=== PATIENT | male | born 1965 | race Caucasian/White ===

== ENCOUNTER 2018-09-25 18:10 | Inpatient (IN) | payer MEDICAID ==
[~2018-09-25] VITALS: Ht 160 cm; Wt 59.1 kg
[2018-09-25] MEDS ORDERED: ACETAMINOPHEN 325 MG TAB PO ONE (18:30)
[2018-09-25] MEDS ORDERED: LORAZEPAM 1 MG TAB PO ONE (18:30)
--- NOTE | 2018-09-25 22:48 | ERD ---
ER Documentation Chief Complaint Chief Complaint C/O HEADACHE FOUND FROM THE STREET AOX4 HPI Patient is a 53-year-old male who presents with headache. The patient was brought in by ambulance. The symptoms started this morning. The patient said the pain comes and goes. He denies any fall today but says he may have had a fall within the last 1 week. His last alcohol was 3 days ago. Upon review of old medical records this is the patient's first visit to the emergency department. ROS All systems reviewed and are negative except as per history of present illness. Allergies Allergies: Coded Allergies: No Known Allergy (Unverified , 09/25/18) PMhx/Soc Medical and Surgical Hx: pt denies Medical Hx, pt denies Surgical Hx Hx Alcohol Use: Yes (etoh at this time) Hx Substance Use: No Hx Tobacco Use: No Smoking Status: Light tobacco smoker FmHx Family History: No diabetes Physical Exam Vitals Vital Signs Date Temp Pulse Resp B/P (MAP) Pulse Ox O2 O2 Flow FiO2 Time Delivery Rate 09/25/18 79 16 136/93 99 21:42 (107) 09/25/18 97.8 72 18 143/68 98 18:15 (93) Physical Exam Const: No acute distress Head: Atraumatic Eyes: Normal Conjunctiva ENT: Normal External Ears, Nose and Mouth. Neck: Full range of motion. No meningismus. Resp: Clear to auscultation bilaterally Cardio: Regular rate and rhythm, no murmurs Abd: Soft, non tender, non distended. Normal bowel sounds Skin: No petechiae or rashes Back: No midline or flank tenderness Ext: No cyanosis, or edema Neur: Awake and alert Psych: Normal Mood and Affect Result Diagram: 09/25/18213909/25/182139 Results 24 hrs Laboratory Tests Test 09/25/18 18:24 09/25/18 21:40 Bedside Glucose 90 mg/dL White Blood Count 5.2 10^3/ul Red Blood Count 3.09 10^6/ul Hemoglobin 9.3 g/dl Hematocrit 28.6 % Mean Corpuscular Volume 92.6 fl Mean Corpuscular Hemoglobin 30.1 pg Mean Corpuscular Hemoglobin Concent 32.5 g/dl Red Cell Distribution Width 12.7 % Platelet Count 321 10^3/UL Mean Platelet Volume 9.2 fl Immature Granulocytes % 0.400 % Neutrophils % % Lymphocytes % % Monocytes % % Eosinophils % % Basophils % % Nucleated Red Blood Cells % 0.0 /100WBC Immature Granulocytes # 0.020 10^3/ul Neutrophils # 10^3/ul Lymphocytes # 10^3/ul Monocytes # 10^3/ul Eosinophils # 10^3/ul Basophils # 10^3/ul Nucleated Red Blood Cells # 10^3/ul Prothrombin Time 13.4 Sec Prothrombin Time Ratio 1.0 INR International Normalized Ratio 1.01 Activated Partial Thromboplast Time 25.5 Sec Sodium Level 138 mmol/L Potassium Level 3.8 mmol/L Chloride Level 101 mmol/L Carbon Dioxide Level 25 mmol/L Anion Gap 12 Blood Urea Nitrogen 19 mg/dl Creatinine 0.90 mg/dl Est Glomerular Filtrat Rate mL/min > 60 mL/min Glucose Level 94 mg/dl Calcium Level 9.9 mg/dl Troponin I < 0.012 ng/ml Current Medications Medications Dose Sig/Kenan Start Time Status Last (Trade) Ordered Route PRN Stop Time Admin Dose Reason Admin Lorazepam 1 mg ONCE ONCE 09/25/18 DC 09/25/18 (Ativan) PO 18:30 09/25/18 18:21 18:31 650 mg ONCE ONCE 09/25/18 DC 09/25/18 Acetaminophen PO 18:30 09/25/18 18:21 (Tylenol 18:31 Tab) Ondansetron 4 mg ER BRIDGE 09/25/18 HCl (Zofran PRN IV 23:00 09/26/18 Inj) NAUSEA/VOMITI 22:59 NG 650 mg ER BRIDGE 09/25/18 Acetaminophen PRN PO 23:00 09/26/18 (Tylenol .MILD PAIN 22:59 Tab) 1-3 OR TEMP Procedures/MDM CT brain shows skull fracture with vasogenic edema per radiology. EKG read by me: Rate/Rhythm: Regular rate and rhythm at a normal rate Intervals: Normal Impression: No evidence of ischemia or arrhythmia Patient is a 53-year-old male who presents with headache. The patient had a CT scan of the brain which shows a skull fracture with underlying edema but no bl eed. The patient will be admitted to the care of Dr. Obrien. I spoke with Dr. Tenorio who will see the patient in consultation and has recommended a repeat CT scan of the brain in the morning. I believe the fracture was likely from fall within the past week given his alcohol abuse. Critical Care: Time: 35 minutes excluding all billable procedures. Treatments/Evaluations: Close monitoring and treatment of unstable vital signs, cardiorespiratory, and neurologic status, while maintaining tight balance of fluid, respiratory, and cardiac interventions. Departure Diagnosis: Primary Impression: Skull fracture Encounter type: initial encounter Skull bone/location: unspecified skull bone Fracture type: closed Qualified Codes: S02.91XA - Unspecified fracture of skull, initial encounter for closed fracture Additional Impressions: Vasogenic edema Headache Headache type: unspecified Headache chronicity pattern: acute headache Intractability: not intractable Qualified Codes: R51 - Headache Condition: EVAN Terry MD September 25, 2018 22:48
[2018-09-25] MEDS ORDERED: ONDANSETRON 4 MG INJ IV PRN ×2 (23:00→23:30)
[2018-09-25] MEDS ORDERED: ACETAMINOPHEN 325 MG TAB PO PRN (23:00)
[2018-09-25] MEDS ORDERED: ALBUTEROL/IPRATROPIUM (NEB) 3 ML AMP NEB PRN (23:30)
[2018-09-25] MEDS ORDERED: ACETAMINOPHEN 650 MG SUPP PR PRN (23:30)
[2018-09-25] MEDS ORDERED: LORAZEPAM 2 MG INJ IV PRN (23:30)
--- NOTE | 2018-09-25 23:31 | HP ---
Date/Time of Note Date/Time of Note DATE: 09/25/18 TIME: 23:30 Assessment/Plan VTE Prophylaxis Pharmacological prophylaxis: heparin Lines/Catheters IV Catheter Type (from Nrsg): Saline Lock Assessment/Plan Assessment/Plan 1. Skull fracture with vasogenic edema -Continue ICU monitoring -Dr. Tenorio from a neurosurgery is aware -Repeat head CT in the morning -will also order MRI of the brain 2. Alcohol intoxication/withdrawal -Banana bag alternating with IV fluid -Librium. As needed Ativan 3. Normocytic anemia: Likely alcohol related -Check FOBT and ferritin/iron to evaluate for possible GI bleed and iron deficiency Result Diagram: 09/25/18213909/25/182139 Results 24hrs Laboratory Tests Test 09/25/18 18:24 09/25/18 21:40 Bedside Glucose 90 White Blood Count 5.2 Red Blood Count 3.09 L Hemoglobin 9.3 L Hematocrit 28.6 L Mean Corpuscular Volume 92.6 Mean Corpuscular Hemoglobin 30.1 Mean Corpuscular Hemoglobin Concent 32.5 Red Cell Distribution Width 12.7 Platelet Count 321 Mean Platelet Volume 9.2 Immature Granulocytes % 0.400 Neutrophils % Segmented Neutrophils % (Manual) 42 Lymphocytes % Lymphocytes % (Manual) 38 Reactive Lymphocytes % (Manual) 1 H Monocytes % Monocytes % (Manual) 14 H Eosinophils % Eosinophils % (Manual) 5 Basophils % Nucleated Red Blood Cells % 0.0 Immature Granulocytes # 0.020 Neutrophils # Lymphocytes (Manual) 1.9 Lymphocytes # Reactive Lymphocytes # 0.0 Monocytes # Monocytes # (Manual) 0.7 Eosinophils # Basophils # Nucleated Red Blood Cells # Platelet Estimate NORMAL Giant Platelets 1 H Polychromasia 1+ Prothrombin Time 13.4 Prothrombin Time Ratio 1.0 INR International Normalized Ratio 1.01 Activated Partial Thromboplast Time 25.5 Sodium Level 138 Potassium Level 3.8 Chloride Level 101 Carbon Dioxide Level 25 Anion Gap 12 Blood Urea Nitrogen 19 Creatinine 0.90 Est Glomerular Filtrat Rate mL/min > 60 Glucose Level 94 Calcium Level 9.9 Troponin I < 0.012 HPI/ROS Admit Date/Time Admit Date/Time Hx of Present Illness This is a 53-year-old male with likely history of alcohol abuse who was brought by [employer] after he was found wandering around. Patient was found to be intoxicated. He complains of headache. When presented to the ER, patient appeared lethargic and also showing signs of alcohol withdrawal. Initial vitals within acceptable range. Head CT shows the following 1. Non depressed fracture of the frontal bone extending into the left parietal bone at the convexity without evidence for acute intracranial hemorrhage. 2. Vasogenic edema in the right frontal right temporal lobes is believed to be related to underlying subacute to chronic contusions rather than neoplasm with local mass effect but no evidence of herniation or hydrocephalous. 3. Generalized advanced cerebral atrophy for the patient's age. PMH/Family/Social Past Medical History Past Surgical Hx: other (see hpi) Family History Significant Family History: no pertinent family hx Social History Alcohol Use: heavy (2 beers a day) Smoking Status: Never smoker Drug Use: none Exam Constitutional: other (no acute distress) ENMT: nl external ears & nose Neck: supple, non-tender Respiratory: normal air movement Cardiovascular: nl pulses Gastrointestinal: soft Extremities: normal pulses Medications Current Medications Ondansetron HCl (Zofran Inj) 4 mg ER BRIDGE PRN IV NAUSEA/VOMITING; Start 09/25/18 at 23:00; Stop 09/26/18 at 22:59 Acetaminophen (Tylenol Tab) 650 mg ER BRIDGE PRN PO .MILD PAIN 1-3 OR TEMP; Start 09/25/18 at 23:00; Stop 09/26/18 at 22:59 Coded Allergies: No Known Allergy (Unverified , 09/25/18) Social History Smoking Status: Light tobacco smoker Exam/Review of Systems Vital Signs Vitals Vital Signs Date Temp Pulse Resp B/P (MAP) Pulse Ox O2 O2 Flow FiO2 Time Delivery Rate 09/25/18 83 14 133/95 98 Room Air 23:04 (108) 09/25/18 97.8 18:15 MIKE WICK MD September 25, 2018 23:30
[2018-09-26] VITALS (20 sets, daily range): BP systolic 105–144; BP diastolic 72–130; PULSE 54–91; RESP 12–26; Ht 160 cm; Wt 59.1 kg
[2018-09-26] MEDS ORDERED: LORAZEPAM 2 MG INJ IV ONE
[2018-09-26] MEDS ORDERED: SOD CHLORIDE 0.9% 1,000 ML IV SCH (01:30)
[2018-09-26] MEDS ORDERED: LORAZEPAM 2 MG INJ IV PRN (01:30)
[2018-09-26] MEDS: CHLORDIAZEPOXIDE 25 MG CAP PO SCH ×3 (03:40→14:15)
[2018-09-26] MEDS: POTASSIUM CHLORIDE (SR) 20 MEQ TAB PO SCH ×2 (06:58→09:40)
[2018-09-26] MEDS ORDERED: MULTIVITAMINS 10 ML, THIAMINE 100 MG, FOLIC ACID 1 MG in SOD CHLORIDE 0.9% 1,000 ML IVPB SCH (09:00)
[2018-09-26] MEDS: FAMOTIDINE 20 MG INJ IV SCH ×2 (09:40→21:01)
--- NOTE | 2018-09-26 12:35 | CONS ---
Assessment/Plan Assessment/Plan Problems: (1) Skull fracture Status: Acute Qualifiers: Qualified Codes: S02.91XA - Unspecified fracture of skull, initial encounter for closed fracture (2) Vasogenic edema Status: Acute Assessment/Plan (Daily) Skull fracture and right hemispheric edema. The patient is a poor historian and there is no clear history of trauma other than that the patient admits to fall about a week ago. Overall his imaging is suggestive of a right hemispheric process- for example a tumor or a resolving contusion. If the latter I do not think it is c/w injury a week ago, but then again the patient is a poor historian. In any event I will get an MRI to rule out an underlying primary [employer] pathology that maybe could have contribute to or caused the fall (ie brain tumor). He is OK to transfer out of ICU from NS perspective if MRI confirms no acute process. Consultation Date/Type/Reason Admit Date/Time Date of Consultation: September 26, 2018 Type of Consult neurosurgery Reason for Consultation skull fracture Date/Time of Note DATE: 09/26/18 TIME: 12:28 Hx of Present Illness 53 year old male presents with headache. CT shows right frontal and temporal edema with mass effect on lateral ventricle; no hyperdensity to suggest hemorrhage. Skull fracture (non-displaced) noted extending from right forehead to left parietal bone. No hydrocephalus, pneumocephalus, or other acute process. Past Medical History Medications Current Medications Ondansetron HCl (Zofran Inj) 4 mg ER BRIDGE PRN IV NAUSEA/VOMITING; Start 09/25/18 at 23:00; Stop 09/26/18 at 22:59 Acetaminophen (Tylenol Tab) 650 mg ER BRIDGE PRN PO .MILD PAIN 1-3 OR TEMP; Start 09/25/18 at 23:00; Stop 09/26/18 at 22:59 Ondansetron HCl (Zofran Inj) 4 mg Q6H PRN IV NAUSEA AND/OR VOMITING; Start 09/25/18 at 23:30 Albuterol/ Ipratropium (Duoneb) 3 ml Q2H RESP THERAPY PRN NEB SHORTNESS OF BREATH; Start 09/25/18 at 23:30 Acetaminophen (Tylenol Supp) 650 mg Q4H PRN OR PAIN LEVEL 1-3 OR FEVER; Start 09/25/18 at 23:30 Lorazepam (Ativan) 1 mg Q2H PRN IV ANXIETY; Start 09/25/18 at 23:30 Famotidine (Pepcid Iv) 20 mg Q12 IV Last administered on 09/26/18at 09:40; Admin Dose 20 MG; Start 09/26/18 at 09:00 Multivitamins 10 ml/Thiamine HCl 100 mg/Folic Acid 1 mg/Sodium Chloride 1,011.2 ml @ 125 mls/ hr DAILY@09 IVPB Last administered on 09/26/18at 10:32; Admin Dose 125 MLS/HR; Start 09/26/18 at 09:00; Stop 09/29/18 at 09:00 Chlordiazepoxide (Librium) 75 mg TID PO Last administered on 09/26/18at 09:40; Admin Dose 75 MG; Start 09/26/18 at 01:30 Lorazepam (Ativan) 2 mg Q1H PRN IV etoh w/d; Start 09/26/18 at 01:30 Allergies: Coded Allergies: No Known Allergy (Unverified , 09/25/18) Social History Smoking Status: Light tobacco smoker Exam/Review of Systems Exam Vitals Vital Signs Date Temp Pulse Resp B/P (MAP) Pulse Ox O2 O2 Flow FiO2 Time Delivery Rate 09/26/18 64 16 116/72 100 Room Air 10:00 (87) 09/26/18 97.8 08:00 Intake and Output 09/25/18 09/25/18 09/26/18 1515:00 23:00 07:00 IntakeIntake Total 400 ml OutputOutput Total 600 ml BalanceBalance -200 ml Constitutional: well developed Psych: confusion Head: normocephalic Eyes: nl conjunctiva, EOMI, nl lids, nl sclera ENMT: nl external ears & nose, mucosa pink and moist Neck: non-tender Musculoskeletal: nl extremities to inspection Neurological: [employer] II-XII intact, nl strength Additional Comments neurologic exam: awake, alert, answers some questions appropriately and does follow commands. Moves all extremities with full power. Results Result Diagram: 09/26/18 0436 09/26/18 0436 Results 24hrs Laboratory Tests Test 09/25/18 18:24 09/25/18 21:40 09/26/18 04:36 Bedside Glucose 90 White Blood Count 5.2 4.4 L Red Blood Count 3.09 L 2.95 L Hemoglobin 9.3 L 8.9 L Hematocrit 28.6 L 26.9 L Mean Corpuscular Volume 92.6 91.2 Mean Corpuscular Hemoglobin 30.1 30.2 Mean Corpuscular Hemoglobin Concent 32.5 33.1 Red Cell Distribution Width 12.7 12.2 Platelet Count 321 295 Mean Platelet Volume 9.2 9.3 Immature Granulocytes % 0.400 0.200 Neutrophils % 49.8 Segmented Neutrophils % (Manual) 42 Lymphocytes % 28.3 Lymphocytes % (Manual) 38 Reactive Lymphocytes % (Manual) 1 H Monocytes % 16.6 H Monocytes % (Manual) 14 H Eosinophils % 2.3 Eosinophils % (Manual) 5 Basophils % 2.8 H Nucleated Red Blood Cells % 0.0 0.0 Immature Granulocytes # 0.020 0.010 Neutrophils # 2.2 Lymphocytes (Manual) 1.9 Lymphocytes # 1.2 Reactive Lymphocytes # 0.0 Monocytes # 0.7 Monocytes # (Manual) 0.7 Eosinophils # 0.1 Basophils # 0.1 Nucleated Red Blood Cells # 0.0 Platelet Estimate NORMAL Giant Platelets 1 H Polychromasia 1+ Prothrombin Time 13.4 Prothrombin Time Ratio 1.0 INR International Normalized Ratio 1.01 Activated Partial Thromboplast Time 25.5 Sodium Level 138 138 Potassium Level 3.8 3.0 L Chloride Level 101 103 Carbon Dioxide Level 25 25 Anion Gap 12 10 Blood Urea Nitrogen 19 13 Creatinine 0.90 0.72 Est Glomerular Filtrat Rate mL/min > 60 > 60 Glucose Level 94 86 Calcium Level 9.9 9.0 Troponin I < 0.012 Hemoglobin A1c 5.0 Magnesium Level 1.7 Iron Level 51 Total Iron Binding Capacity 256 Percent Iron Saturation 20 L Ferritin 691.0 H Total Bilirubin 0.7 Direct Bilirubin 0.00 Indirect Bilirubin 0.7 Aspartate Amino Transf (AST/SGOT) 45 Alanine Aminotransferase (ALT/SGPT) 49 Alkaline Phosphatase 102 Total Protein 6.7 Albumin 3.7 Globulin 3.00 Albumin/Globulin Ratio 1.23 Ethyl Alcohol Level < 10.0 H Medications Medication Current Medications Ondansetron HCl (Zofran Inj) 4 mg ER BRIDGE PRN IV NAUSEA/VOMITING; Start 09/25/18 at 23:00; Stop 09/26/18 at 22:59 Acetaminophen (Tylenol Tab) 650 mg ER BRIDGE PRN PO .MILD PAIN 1-3 OR TEMP; Start 09/25/18 at 23:00; Stop 09/26/18 at 22:59 Ondansetron HCl (Zofran Inj) 4 mg Q6H PRN IV NAUSEA AND/OR VOMITING; Start 09/25/18 at 23:30 Albuterol/ Ipratropium (Duoneb) 3 ml Q2H RESP THERAPY PRN NEB SHORTNESS OF BREATH; Start 09/25/18 at 23:30 Acetaminophen (Tylenol Supp) 650 mg Q4H PRN OR PAIN LEVEL 1-3 OR FEVER; Start 09/25/18 at 23:30 Lorazepam (Ativan) 1 mg Q2H PRN IV ANXIETY; Start 09/25/18 at 23:30 Famotidine (Pepcid Iv) 20 mg Q12 IV Last administered on 09/26/18at 09:40; Admin Dose 20 MG; Start 09/26/18 at 09:00 Multivitamins 10 ml/Thiamine HCl 100 mg/Folic Acid 1 mg/Sodium Chloride 1,011.2 ml @ 125 mls/ hr DAILY@09 IVPB Last administered on 09/26/18at 10:32; Admin Dose 125 MLS/HR; Start 09/26/18 at 09:00; Stop 09/29/18 at 09:00 Chlordiazepoxide (Librium) 75 mg TID PO Last administered on 09/26/18at 09:40; Admin Dose 75 MG; Start 09/26/18 at 01:30 Lorazepam (Ativan) 2 mg Q1H PRN IV etoh w/d; Start 09/26/18 at 01:30 RICKIE ANGEL MD September 26, 2018 12:35
--- NOTE | 2018-09-26 15:11 | PN ---
Date/Time of Note Date/Time of Note DATE: 09/26/18 TIME: 15:06 Assessment/Plan VTE Prophylaxis Risk score (from Nsg)>0 risk: 4 SCD applied (from Nsg): Yes Pharmacological prophylaxis: heparin Lines/Catheters IV Catheter Type (from Nrsg): Peripheral IV Urinary Cath still in place: Yes Reason Cath still needed: urinary retention Assessment/Plan Hospital Course Lethargic Able to answer where he is, year, name appopriately, however unable to provide coherent history Moving extremities x 4 spontaneously CN in tact RRR CTAB + Tremors in hands A/P: 53 yo male with unclear medical history who was brought in by EMS with documentation stating he was wandering back and forth on the street and complaining of headache. CT head shows skull fracture and Vasogenic edema in the right frontal right temporal lobes. He is acutely encephelopathic and unable to provide history - I dont' see any evidence by labs or history that this patient's is a chronic alcoholic to suggest his encephelopahty is 2/2 withdrawal. He is a bit tremulous in his hands but it seems unlikely this is purely alcohol withdrawal. Will dc librium and monitor - Whatever process is occuring in his brain may be leading to his encephelopahty. Might be malignancy. Will obtain MRI to evaluate - Supportive care in the meantime Result Diagram: 09/26/18 0436 09/26/18 0436 Results 24hrs Laboratory Tests Test 09/25/18 18:24 09/25/18 21:40 09/26/18 04:36 09/26/18 06:00 Bedside Glucose 90 White Blood Count 5.2 4.4 L Red Blood Count 3.09 L 2.95 L Hemoglobin 9.3 L 8.9 L Hematocrit 28.6 L 26.9 L Mean Corpuscular Volume 92.6 91.2 Mean Corpuscular 30.1 30.2 Hemoglobin Mean Corpuscular 32.5 33.1 Hemoglobin Concent Red Cell Distribution 12.7 12.2 Width Platelet Count 321 295 Mean Platelet Volume 9.2 9.3 Immature Granulocytes % 0.400 0.200 Neutrophils % 49.8 Segmented Neutrophils 42 % (Manual) Lymphocytes % 28.3 Lymphocytes % (Manual) 38 Reactive Lymphocytes 1 H % (Manual) Monocytes % 16.6 H Monocytes % (Manual) 14 H Eosinophils % 2.3 Eosinophils % (Manual) 5 Basophils % 2.8 H Nucleated Red Blood 0.0 0.0 Cells % Immature Granulocytes # 0.020 0.010 Neutrophils # 2.2 Lymphocytes (Manual) 1.9 Lymphocytes # 1.2 Reactive Lymphocytes # 0.0 Monocytes # 0.7 Monocytes # (Manual) 0.7 Eosinophils # 0.1 Basophils # 0.1 Nucleated Red Blood 0.0 Cells # Platelet Estimate NORMAL Giant Platelets 1 H Polychromasia 1+ Prothrombin Time 13.4 Prothrombin Time Ratio 1.0 INR International 1.01 Normalized Ratio Activated 25.5 Partial Thromboplast Time Sodium Level 138 138 Potassium Level 3.8 3.0 L Chloride Level 101 103 Carbon Dioxide Level 25 25 Anion Gap 12 10 Blood Urea Nitrogen 19 13 Creatinine 0.90 0.72 Est Glomerular Filtrat > 60 > 60 Rate mL/min Glucose Level 94 86 Calcium Level 9.9 9.0 Troponin I < 0.012 Hemoglobin A1c 5.0 Magnesium Level 1.7 Iron Level 51 Total Iron Binding 256 Capacity Percent Iron Saturation 20 L Ferritin 691.0 H Total Bilirubin 0.7 Direct Bilirubin 0.00 Indirect Bilirubin 0.7 Aspartate Amino 45 Transf (AST/SGOT) Alanine 49 Aminotransferase (ALT/SG PT) Alkaline Phosphatase 102 Total Protein 6.7 Albumin 3.7 Globulin 3.00 Albumin/Globulin Ratio 1.23 Ethyl Alcohol Level < 10.0 H Urine Opiates Screen Negative Urine Barbiturates Negative Urine Amphetamines Negative Screen Urine Benzodiazepines Negative Screen Urine Cocaine Screen Negative Urine Cannabinoids Negative Subjective 24 Hr Interval Summary Free Text/Dictation Patinet complains of pain in occiput Exam/Review of Systems Exam Vitals Vital Signs Date Temp Pulse Resp B/P (MAP) Pulse Ox O2 O2 Flow FiO2 Time Delivery Rate 09/26/18 54 13 123/85 100 Room Air 15:00 (98) 09/26/18 96.9 12:00 Intake and Output 09/25/18 09/25/18 09/26/18 1515:00 23:00 07:00 IntakeIntake Total 400 ml OutputOutput Total 600 ml BalanceBalance -200 ml Results Results 24hrs Laboratory Tests Test 09/25/18 18:24 09/25/18 21:40 09/26/18 04:36 09/26/18 06:00 Bedside Glucose 90 White Blood Count 5.2 4.4 L Red Blood Count 3.09 L 2.95 L Hemoglobin 9.3 L 8.9 L Hematocrit 28.6 L 26.9 L Mean Corpuscular Volume 92.6 91.2 Mean Corpuscular 30.1 30.2 Hemoglobin Mean Corpuscular 32.5 33.1 Hemoglobin Concent Red Cell Distribution 12.7 12.2 Width Platelet Count 321 295 Mean Platelet Volume 9.2 9.3 Immature Granulocytes % 0.400 0.200 Neutrophils % 49.8 Segmented Neutrophils 42 % (Manual) Lymphocytes % 28.3 Lymphocytes % (Manual) 38 Reactive Lymphocytes 1 H % (Manual) Monocytes % 16.6 H Monocytes % (Manual) 14 H Eosinophils % 2.3 Eosinophils % (Manual) 5 Basophils % 2.8 H Nucleated Red Blood 0.0 0.0 Cells % Immature Granulocytes # 0.020 0.010 Neutrophils # 2.2 Lymphocytes (Manual) 1.9 Lymphocytes # 1.2 Reactive Lymphocytes # 0.0 Monocytes # 0.7 Monocytes # (Manual) 0.7 Eosinophils # 0.1 Basophils # 0.1 Nucleated Red Blood 0.0 Cells # Platelet Estimate NORMAL Giant Platelets 1 H Polychromasia 1+ Prothrombin Time 13.4 Prothrombin Time Ratio 1.0 INR International 1.01 Normalized Ratio Activated 25.5 Partial Thromboplast Time Sodium Level 138 138 Potassium Level 3.8 3.0 L Chloride Level 101 103 Carbon Dioxide Level 25 25 Anion Gap 12 10 Blood Urea Nitrogen 19 13 Creatinine 0.90 0.72 Est Glomerular Filtrat > 60 > 60 Rate mL/min Glucose Level 94 86 Calcium Level 9.9 9.0 Troponin I < 0.012 Hemoglobin A1c 5.0 Magnesium Level 1.7 Iron Level 51 Total Iron Binding 256 Capacity Percent Iron Saturation 20 L Ferritin 691.0 H Total Bilirubin 0.7 Direct Bilirubin 0.00 Indirect Bilirubin 0.7 Aspartate Amino 45 Transf (AST/SGOT) Alanine 49 Aminotransferase (ALT/SG PT) Alkaline Phosphatase 102 Total Protein 6.7 Albumin 3.7 Globulin 3.00 Albumin/Globulin Ratio 1.23 Ethyl Alcohol Level < 10.0 H Urine Opiates Screen Negative Urine Barbiturates Negative Urine Amphetamines Negative Screen Urine Benzodiazepines Negative Screen Urine Cocaine Screen Negative Urine Cannabinoids Negative Medications Medication Current Medications Ondansetron HCl (Zofran Inj) 4 mg ER BRIDGE PRN IV NAUSEA/VOMITING; Start 09/25/18 at 23:00; Stop 09/26/18 at 22:59 Acetaminophen (Tylenol Tab) 650 mg ER BRIDGE PRN PO .MILD PAIN 1-3 OR TEMP; Start 09/25/18 at 23:00; Stop 09/26/18 at 22:59 Ondansetron HCl (Zofran Inj) 4 mg Q6H PRN IV NAUSEA AND/OR VOMITING; Start 09/25/18 at 23:30 Albuterol/ Ipratropium (Duoneb) 3 ml Q2H RESP THERAPY PRN NEB SHORTNESS OF BREATH; Start 09/25/18 at 23:30 Acetaminophen (Tylenol Supp) 650 mg Q4H PRN [place] PAIN LEVEL 1-3 OR FEVER; Start 09/25/18 at 23:30 Lorazepam (Ativan) 1 mg Q2H PRN IV ANXIETY; Start 09/25/18 at 23:30 Famotidine (Pepcid Iv) 20 mg Q12 IV Last administered on 09/26/18at 09:40; Admin Dose 20 MG; Start 09/26/18 at 09:00 Multivitamins 10 ml/Thiamine HCl 100 mg/Folic Acid 1 mg/Sodium Chloride 1,011.2 ml @ 125 mls/ hr DAILY@09 IVPB Last administered on 09/26/18at 10:32; Admin Dose 125 MLS/HR; Start 09/26/18 at 09:00; Stop 09/29/18 at 09:00 Chlordiazepoxide (Librium) 75 mg TID PO Last administered on 09/26/18at 14:15; Admin Dose 75 MG; Start 09/26/18 at 01:30 Lorazepam (Ativan) 2 mg Q1H PRN IV etoh w/d; Start 09/26/18 at 01:30 RIC GIRON MD September 26, 2018 15:11
[2018-09-26] MEDS ORDERED: PRENATAL VITAMIN PO ONE (16:30)
[2018-09-27] VITALS (12 sets, daily range): BP systolic 104–137; BP diastolic 57–87; PULSE 71–101; RESP 18–20
[2018-09-27] MEDS: FAMOTIDINE 20 MG INJ IV SCH ×2 (08:34→21:45)
--- NOTE | 2018-09-27 15:53 | PN ---
Date/Time of Note Date/Time of Note DATE: 09/27/18 TIME: 15:48 Assessment/Plan VTE Prophylaxis Risk score [place]from [facility] [place] risk: 4 SCD applied (from [facility] [place] Yes Pharmacological prophylaxis: NA/contraindicated Pharm contraindication: bleeding Lines/Catheters IV C[facility]ter Type (from [facility]): Saline Lock Assessment/Plan Hospital Course 1. Acute encephalopathy secondary to intracranial hemorrhage Patient with unclear medical history who was brought in by EMS for confusion and headache CT head showed skull fracture and Vasogenic edema in the right frontal right temporal lobes. MRI shows complex area of hemorrhage involving the anterior medial right temporal lobe, largest hemorrhagic collection measuring 5.0 x 2.4 x 2.5 cm, vasogenic edema noted, subdural hemorrhages in the right temporal, occipital and parietal regions in the left and right frontal areas and very small subdural hemorrhage in the left occipital region Neurosurgery consultation appreciated, follow-up with recommendations Patient with history of alcohol abuse and likely fall, continue banana bag Patient continues to be alert and only oriented to his name 2. Hypokalemia Replete 3. Bicytopenia with leukopenia and anemia likely secondary to alcohol abuse Monitor 4. Alcohol abuse Continue banana bag Prophylaxis: SCDs Result Diagram: 09/26/18 0436 09/26/18 0436 Subjective 24 Hr Interval Summary Constitutional: no complaints Exam/Review of Systems Exam Vitals Vital Signs Date Temp Pulse Resp B/P (MAP) Pulse Ox O2 O2 Flow FiO2 Time Delivery Rate 09/27/18 98.8 74 18 120/79 99 15:37 (93) 09/26/18 Room Air 16:12 Intake and Output 09/26/18 09/26/18 09/27/18 1515:00 23:00 07:00 IntakeIntake Total 1265 ml 400 ml OutputOutput Total 1100 ml 700 ml 900 ml BalanceBalance 165 ml -300 ml -900 ml Constitutional: alert Psych: confusion Respiratory: clear to auscultation Cardiovascular: regular rate and rhythm Gastrointestinal: soft; No distended Musculoskeletal: nl extremities to inspection Medications Medication Current Medications Ondansetron HCl (Zofran Inj) 4 mg Q6H PRN IV NAUSEA AND/OR VOMITING; Start 09/25/18 at 23:30 Albuterol/ Ipratropium (Duoneb) 3 ml Q2H RESP THERAPY PRN NEB SHORTNESS OF BREATH; Start 09/25/18 at 23:30 Acetaminophen (Tylenol Supp) 650 mg Q4H PRN [place] PAIN LEVEL 1-3 OR FEVER Last administered on 09/26/18at 21:01; Admin Dose 650 MG; Start 09/25/18 at 23:30 Lorazepam (Ativan) 1 mg Q2H PRN IV ANXIETY; Start 09/25/18 at 23:30 Famotidine (Pepcid Iv) 20 mg Q12 IV Last administered on 09/27/18at 08:34; Admin Dose 20 MG; Start 09/26/18 at 09:00 Lorazepam (Ativan) 2 mg Q1H PRN IV etoh w/d; Start 09/26/18 at 01:30 MARCIO CAMERON September 27, 2018 15:53
[2018-09-27] MEDS: POTASSIUM CHLORIDE 40 MEQ in SOD CHLORIDE 0.9% 1,000 ML IV SCH (18:22)
[2018-09-27] MEDS: ACETAMINOPHEN 325 MG TAB PO PRN (19:58)
[2018-09-28] VITALS (11 sets, daily range): BP systolic 117–134; BP diastolic 71–83; PULSE 64–87; RESP 16–22
[2018-09-28] MEDS: POTASSIUM CHLORIDE 40 MEQ in SOD CHLORIDE 0.9% 1,000 ML IV SCH ×2 (07:36→10:17)
[2018-09-28] MEDS: FAMOTIDINE 20 MG INJ IV SCH ×2 (08:12→21:01)
--- NOTE | 2018-09-28 15:27 | CONS ---
Assessment/Plan Assessment/Plan Assessment/Plan (Daily) Hemorrhages/fracture likely quite old. No role for neurosurgical intervention. Continue supportive care Consultation Date/Type/Reason Admit Date/Time September 25, 2018 at 22:24 Initial Consult Date 09/26/18 Type of Consult Neurosurgery Date/Time of Note DATE: 09/28/18 TIME: 15:22 24 HR Interval Summary Free Text/Dictation MRI repeated with contrast -- no underlying enhancing lesions Exam/Review of Systems Exam Vitals Vital Signs Date Temp Pulse Resp B/P (MAP) Pulse Ox O2 O2 Flow FiO2 Time Delivery Rate 09/28/18 98.0 71 22 118/76 96 Room Air 12:26 (90) Intake and Output 09/27/18 09/27/18 09/28/18 1515:00 23:00 07:00 IntakeIntake Total 650 ml OutputOutput Total 700 ml 750 ml BalanceBalance -50 ml -750 ml Exam Ox2 CN grossly intact 09/26 Results Result Diagram: 09/26/18 0436 09/28/18 0717 Results 24hrs Laboratory Tests Test 09/28/18 07:17 Sodium Level 140 Potassium Level 4.0 Chloride Level 103 Carbon Dioxide Level 26 Anion Gap 11 Blood Urea Nitrogen 9 Creatinine 0.87 Est Glomerular Filtrat Rate mL/min > 60 Glucose Level 82 Calcium Level 9.4 Magnesium Level 1.5 L Imaging Imaging MRI - right hemispheric evolving contusions and small subdurals, no underlying enhancement appreciated Medications Medication Current Medications Ondansetron HCl (Zofran Inj) 4 mg Q6H PRN IV NAUSEA AND/OR VOMITING; Start 09/25/18 at 23:30 Albuterol/ Ipratropium (Duoneb) 3 ml Q2H RESP THERAPY PRN NEB SHORTNESS OF BREATH; Start 09/25/18 at 23:30 Acetaminophen (Tylenol Supp) 650 mg Q4H PRN [place] PAIN LEVEL 1-3 OR FEVER Last administered on 09/26/18at 21:01; Admin Dose 650 MG; Start 09/25/18 at 23:30 Lorazepam (Ativan) 1 mg Q2H PRN IV ANXIETY; Start 09/25/18 at 23:30 Famotidine (Pepcid Iv) 20 mg Q12 IV Last administered on 09/28/18at 08:12; Admin Dose 20 MG; Start 09/26/18 at 09:00 Lorazepam (Ativan) 2 mg Q1H PRN IV etoh w/d; Start 09/26/18 at 01:30 Potassium Chloride 40 meq/ Sodium Chloride 1,000 ml @ 100 mls/hr Q10H IV Last administered on 09/28/18at 10:17; Admin Dose 100 MLS/HR; Start 09/27/18 at 17:30 Acetaminophen (Tylenol Tab) 650 mg Q6H PRN PO MILD PAIN(1-3)OR ELEVATED TEMP Last administered on 09/27/18at 19:58; Admin Dose 650 MG; Start 09/27/18 at 18:30 JOSS WILDE MD September 28, 2018 15:27
--- NOTE | 2018-09-28 15:43 | PN ---
Date/Time of Note Date/Time of Note DATE: 09/28/18 TIME: 15:42 Assessment/Plan VTE Prophylaxis Risk score (from Ns)>0 risk: 4 SCD applied (from [facility] [place]): Yes Pharmacological prophylaxis: NA/contraindicated Pharm contraindication: bleeding Lines/Catheters IV C[facility] Type (from [facility] Saline Lock Assessment/Plan Hospital Course 1. Acute encephalopathy secondary to intracranial hemorrhage Patient with unclear medical history who was brought in by EMS for confusion and headache CT head showed skull fracture and Vasogenic edema in the right frontal right temporal lobes. MRI shows complex area of hemorrhage involving the anterior medial right temporal lobe, largest hemorrhagic collection measuring 5.0 x 2.4 x 2.5 cm, vasogenic edema noted, subdural hemorrhages in the right temporal, occipital and parietal regions in the left and right frontal areas and very small subdural hemorrhage in the left occipital region Neurosurgery consultation appreciated, no indications for surgery Patient with history of alcohol abuse and likely fall, continue banana bag Patient continues to be alert and only oriented to his name Ammonia level in a.m. 2. Hypokalemia Replete 3. Bicytopenia with leukopenia and anemia likely secondary to alcohol abuse Monitor 4. Alcohol abuse Continue banana bag Prophylaxis: SCDs Result Diagram: 09/26/18 0436 09/28/18 0717 Results 24hrs Laboratory Tests Test 09/28/18 07:17 Sodium Level 140 Potassium Level 4.0 Chloride Level 103 Carbon Dioxide Level 26 Anion Gap 11 Blood Urea Nitrogen 9 Creatinine 0.87 Est Glomerular Filtrat Rate mL/min > 60 Glucose Level 82 Calcium Level 9.4 Magnesium Level 1.5 L Subjective 24 Hr Interval Summary Constitutional: disoriented Exam/Review of Systems Exam Vitals Vital Signs Date Temp Pulse Resp B/P (MAP) Pulse Ox O2 O2 Flow FiO2 Time Delivery Rate 09/28/18 98.0 71 22 118/76 96 Room Air 12:26 (90) Intake and Output 09/27/18 09/27/18 09/28/18 1515:00 23:00 07:00 IntakeIntake Total 650 ml OutputOutput Total 700 ml 750 ml BalanceBalance -50 ml -750 ml Psych: confusion Respiratory: clear to auscultation Cardiovascular: regular rate and rhythm Gastrointestinal: soft; No distended Musculoskeletal: nl extremities to inspection Results Results 24hrs Laboratory Tests Test 09/28/18 07:17 Sodium Level 140 Potassium Level 4.0 Chloride Level 103 Carbon Dioxide Level 26 Anion Gap 11 Blood Urea Nitrogen 9 Creatinine 0.87 Est Glomerular Filtrat Rate mL/min > 60 Glucose Level 82 Calcium Level 9.4 Magnesium Level 1.5 L Medications Medication Current Medications Ondansetron HCl (Zofran Inj) 4 mg Q6H PRN IV NAUSEA AND/OR VOMITING; Start 09/25/18 at 23:30 Albuterol/ Ipratropium (Duoneb) 3 ml Q2H RESP THERAPY PRN NEB SHORTNESS OF BREATH; Start 09/25/18 at 23:30 Acetaminophen (Tylenol Supp) 650 mg Q4H PRN [place] PAIN LEVEL 1-3 OR FEVER Last administered on 09/26/18 21:01; Admin Dose 650 MG; Start 09/25/18 at 23:30 Lorazepam (Ativan) 1 mg Q2H PRN IV ANXIETY; Start 09/25/18 at 23:30 Famotidine (Pepcid Iv) 20 mg Q12 IV Last administered on 09/28/18 08:12; Admin Dose 20 MG; Start 09/26/18 at 09:00 Lorazepam (Ativan) 2 mg Q1H PRN IV etoh w/d; Start 09/26/18 at 01:30 Potassium Chloride 40 meq/ Sodium Chloride 1,000 ml @ 100 mls/hr Q10H IV Last administered on 09/28/18at 10:17; Admin Dose 100 MLS/HR; Start 09/27/18 at 17:30 Acetaminophen (Tylenol Tab) 650 mg Q6H PRN PO MILD PAIN(1-3)OR ELEVATED TEMP Last administered on 09/27/18at 19:58; Admin Dose 650 MG; Start 09/27/18 at 18:30 MARCIO CAMERON September 28, 2018 15:43
[2018-09-28] MEDS ORDERED: MAGNESIUM SULFATE 4 GM/100 ML 100 ML IVPB ONE (18:00)
[2018-09-29] VITALS: BP 144/82; PULSE 75; RESP 16
[2018-09-29] MEDS: POTASSIUM CHLORIDE 40 MEQ in SOD CHLORIDE 0.9% 1,000 ML IV SCH ×2 (01:00→09:01)
[2018-09-29 04:00] VITALS: BP 131/80; PULSE 90; RESP 18
[2018-09-29 07:15] VITALS: BP 131/84; PULSE 79; RESP 20
[2018-09-29] MEDS: FAMOTIDINE 20 MG INJ IV SCH ×2 (09:02→21:03)
[2018-09-29 11:13] VITALS: BP 102/67; PULSE 87; RESP 18
[2018-09-29 14:00] VITALS: BP 104/77; PULSE 78; RESP 18
--- NOTE | 2018-09-29 14:42 | PN ---
Date/Time of Note Date/Time of Note DATE: 09/29/18 TIME: 14:40 Assessment/Plan VTE [place]axis [place] [facility] [place]: 2 [place] [facility] [place] Yes Pharmacological prophylaxis: NA/contraindicated Pharm contraindication: bleeding Lines/Catheters IV [facility]atheter Type (from [facility]): Saline Lock Assessment/Plan Hospital Course 1. Acute encephalopathy secondary to intracranial hemorrhage Patient with persistent confusion Patient with unclear medical history who was brought in by EMS for confusion and headache CT head showed skull fracture and Vasogenic edema in the right frontal right temporal lobes. MRI shows complex area of hemorrhage involving the anterior medial right temporal lobe, largest hemorrhagic collection measuring 5.0 x 2.4 x 2.5 cm, vasogenic edema noted, subdural hemorrhages in the right temporal, occipital and parietal regions in the left and right frontal areas and very small subdural hemorrhage in the left occipital region Neurosurgery consultation appreciated, no indications for surgery Patient with history of alcohol abuse and likely fall, continue banana bag Patient continues to be alert and only oriented to his name Ammonia level is normal. 2. Hypokalemia Replete 3. Bicytopenia with leukopenia and anemia likely secondary to alcohol abuse Monitor 4. Alcohol abuse Continue banana bag Prophylaxis: SCDs DC planning: [facility] to [facility], social media assistant following Result Diagram: 09/26/18 0436 09/29/18 0606 Results 24hrs Laboratory Tests Test 09/29/18 06:06 Sodium Level 141 Potassium Level 4.7 Chloride Level 107 Carbon Dioxide Level 29 Anion Gap 5 Blood Urea Nitrogen 9 Creatinine 1.05 Est Glomerular Filtrat Rate mL/min > 60 Glucose Level 94 Calcium Level 8.9 Magnesium Level 2.1 Ammonia < 9 L Subjective 24 Hr Interval Summary Constitutional: disoriented Exam/Review of Systems Exam Vitals Vital Signs Date Temp Pulse Resp B/P (MAP) Pulse Ox O2 O2 Flow FiO2 Time Delivery Rate 09/29/18 98.7 87 18 102/67 100 Room Air 11:13 (79) Intake and Output 09/28/18 09/28/18 09/29/18 1515:00 23:00 07:00 IntakeIntake Total 1280 ml 500 ml OutputOutput Total 1200 ml 1500 ml BalanceBalance 80 ml -1000 ml Constitutional: alert Psych: confusion Respiratory: clear to auscultation Cardiovascular: regular rate and rhythm Gastrointestinal: soft; No distended Musculoskeletal: nl extremities to inspection Results Results 24hrs Laboratory Tests Test 09/29/18 06:06 Sodium Level 141 Potassium Level 4.7 Chloride Level 107 Carbon Dioxide Level 29 Anion Gap 5 Blood Urea Nitrogen 9 Creatinine 1.05 Est Glomerular Filtrat Rate mL/min > 60 Glucose Level 94 Calcium Level 8.9 Magnesium Level 2.1 Ammonia < 9 L Medications Medication Current Medications Ondansetron HCl (Zofran Inj) 4 mg Q6H PRN IV NAUSEA AND/OR VOMITING; Start 09/25/18 at 23:30 Albuterol/ Ipratropium (Duoneb) 3 ml Q2H RESP THERAPY PRN NEB SHORTNESS OF BREATH; Start 09/25/18 at 23:30 Acetaminophen (Tylenol Supp) 650 mg Q4H PRN [place] PAIN LEVEL 1-3 OR FEVER Last administered on 09/26/18at 21:01; Admin Dose 650 MG; Start 09/25/18 at 23:30 Lorazepam (Ativan) 1 mg Q2H PRN IV ANXIETY; Start 09/25/18 at 23:30 Famotidine (Pepcid Iv) 20 mg Q12 IV Last administered on 09/29/18at 09:02; Admin Dose 20 MG; Start 09/26/18 at 09:00 Lorazepam (Ativan) 2 mg Q1H PRN IV etoh w/d; Start 09/26/18 at 01:30 Potassium Chloride 40 meq/ Sodium Chloride 1,000 ml @ 100 mls/hr Q10H IV Last administered on 09/29/18at 01:00; Admin Dose 100 MLS/HR; Start 09/27/18 at 17:30 Acetaminophen (Tylenol Tab) 650 mg Q6H PRN PO MILD PAIN(1-3)OR ELEVATED TEMP Last administered on 09/27/18 19:58; Admin Dose 650 MG; Start 09/27/18 at 18:30 MARCIO CAMERON September 29, 2018 14:42
[2018-09-29] MEDS: ACETAMINOPHEN 325 MG TAB PO PRN (18:16)
[2018-09-29 20:00] VITALS: BP 146/82; PULSE 77; RESP 19
[2018-09-30 02:15] VITALS: BP 138/72; PULSE 72; RESP 17
[2018-09-30 07:38] VITALS: BP 126/87; PULSE 81; RESP 16
[2018-09-30] MEDS: FAMOTIDINE 20 MG INJ IV SCH ×2 (09:00→20:53)
[2018-09-30] MEDS: MULTIVITAMINS 10 ML, THIAMINE 100 MG, FOLIC ACID 1 MG in SOD CHLORIDE 0.9% 1,000 ML IVPB SCH (09:00)
[2018-09-30 14:11] VITALS: BP 140/85; PULSE 83; RESP 16
--- NOTE | 2018-09-30 14:21 | PN ---
Date/Time of Note Date/Time of Note DATE: 09/30/18 TIME: 14:20 Assessment/Plan VTE Prophylaxis Risk score (from Ns)>0 risk: 1 SCD applied (from [facility] [place]): Yes Pharmacological prophylaxis: NA/contraindicated Pharm contraindication: bleeding Lines/Catheters IV Catheter Type (from [facility]): Saline Lock Assessment/Plan Hospital Course 1. Acute encephalopathy secondary to intracranial hemorrhage Patient with persistent confusion Patient with unclear medical history who was brought in by EMS for confusion and headache CT head showed skull fracture and Vasogenic edema in the right frontal right temporal lobes. MRI shows complex area of hemorrhage involving the anterior medial right temporal lobe, largest hemorrhagic collection measuring 5.0 x 2.4 x 2.5 cm, vasogenic edema noted, subdural hemorrhages in the right temporal, occipital and parietal regions in the left and right frontal areas and very small subdural hemorrhage in the left occipital region Neurosurgery consultation appreciated, no indications for surgery Patient with history of alcohol abuse and likely fall, continue banana bag Patient continues to be alert and only oriented to his name Ammonia level is normal. 2. Hypokalemia Replete 3. Bicytopenia with leukopenia and anemia likely secondary to alcohol abuse Monitor 4. Alcohol abuse Continue banana bag Prophylaxis: SCDs DC planning: Patient will likely need placement Result Diagram: 09/26/18 0436 09/29/18 0606 Subjective 24 Hr Interval Summary Subjective hx not possible: pt non-verbal Exam/Review of Systems Exam Vitals Vital Signs Date Temp Pulse Resp B/P (MAP) Pulse Ox O2 O2 Flow FiO2 Time Delivery Rate 09/30/18 98.1 83 16 140/85 99 Room Air 14:11 (103) Intake and Output 09/29/18 09/29/18 09/30/18 1515:00 23:00 07:00 IntakeIntake Total 360 ml OutputOutput Total 1000 ml BalanceBalance -640 ml Psych: confusion Respiratory: clear to auscultation Cardiovascular: regular rate and rhythm Gastrointestinal: soft; No distended Musculoskeletal: nl extremities to inspection Medications Medication Current Medications Ondansetron HCl (Zofran Inj) 4 mg Q6H PRN IV NAUSEA AND/OR VOMITING; Start 09/25/18 at 23:30 Albuterol/ Ipratropium (Duoneb) 3 ml Q2H RESP THERAPY PRN NEB SHORTNESS OF BREATH; Start 09/25/18 at 23:30 Acetaminophen (Tylenol Supp) 650 mg Q4H PRN [place] PAIN LEVEL 1-3 OR FEVER Last administered on 09/26/18at 21:01; Admin Dose 650 MG; Start 09/25/18 at 23:30 Lorazepam (Ativan) 1 mg Q2H PRN IV ANXIETY; Start 09/25/18 at 23:30 Famotidine (Pepcid Iv) 20 mg Q12 IV Last administered on 09/30/18at 09:00; Admin Dose 20 MG; Start 09/26/18 at 09:00 Lorazepam (Ativan) 2 mg Q1H PRN IV etoh w/d; Start 09/26/18 at 01:30 Acetaminophen (Tylenol Tab) 650 mg Q6H PRN PO MILD PAIN(1-3)OR ELEVATED TEMP Last administered on 09/29/18at 18:16; Admin Dose 650 MG; Start 09/27/18 at 18:30 Multivitamins 10 ml/Thiamine HCl 100 mg/Folic Acid 1 mg/Sodium Chloride 1,011.2 ml @ 125 mls/ hr DAILY@09 IVPB Last administered on 09/30/18at 09:00; Admin Dose 125 MLS/HR; Start 09/30/18 at 09:00; Stop 10/01/18 at 23:00 MARCIO CAMERON September 30, 2018 14:21
[2018-09-30 20:00] VITALS: BP 103/64; PULSE 80; RESP 18
[2018-10-01 02:25] VITALS: BP 110/72; PULSE 80; RESP 18
[2018-10-01 07:31] VITALS: BP 96/60; PULSE 103; RESP 18
[2018-10-01] MEDS: FAMOTIDINE 20 MG INJ IV SCH ×2 (09:31→20:54)
[2018-10-01] MEDS: MULTIVITAMINS 10 ML, THIAMINE 100 MG, FOLIC ACID 1 MG in SOD CHLORIDE 0.9% 1,000 ML IVPB SCH (09:31)
--- NOTE | 2018-10-01 12:32 | PDOCDIS ---
Discharge Instructions CONDITION [id number] Patient Condition: [id number] Good HOME CARE INSTRUCTIONS: [id number] Diet Instructions: [id number] Regular ACTIVITY: [id number] Activity Restrictions: [id number] Slowly Increase Activity FOLLOW UP/APPOINTMENTS Follow-up Plan FOLLOW UP WITH YOUR PCP IN 1-2 WEEKS MARCIO CAMERON October 01, 2018 12:32
[2018-10-01] MEDS ORDERED: THIA250T3 PO (12:34)
--- NOTE | 2018-10-01 13:49 | DS ---
Date/Time of Note Date/Time of Note DATE: 10/01/18 TIME: 13:46 Discharge Summary Admission/Discharge Info Admit Date/Time September 25, 2018 at 22:24 Discharge Date/Time October 01, 2018 Discharge Diagnosis 1. Acute metabolic/toxic encephalopathy secondary to alcohol abuse and/or intracranial hemorrhage-improved Patient now alert alert and oriented Patient was brought in by EMS for confusion and headache and was confused for several days CT head showed skull fracture and Vasogenic edema in the right frontal right temporal lobes. MRI shows complex area of hemorrhage involving the anterior medial right temporal lobe, largest hemorrhagic collection measuring 5.0 x 2.4 x 2.5 cm, vasogenic edema noted, subdural hemorrhages in the right temporal, occipital and parietal regions in the left and right frontal areas and very small subdural hemorrhage in the left occipital region Neurosurgery consultation appreciated, no indications for surgery Patient with history of alcohol abuse and likely fall, status post banana bag Ammonia level is normal. 2. Hypokalemia Repleted 3. Bicytopenia with leukopenia and anemia likely secondary to alcohol abuse Monitor 4. Alcohol abuse Status post banana bag Noticed withdrawals DC with thiamine p.o. Alcohol cessation advised Patient Condition: Good Hospital Course Patient is a 53-year-old male with a history of alcohol abuse who presents with acute encephalopathy likely secondary to alcohol abuse and/or intracranial hemorrhage. Patient was found by EMS confused and with a headache. CT showed skull fracture and vasogenic edema in the right frontal right temporal lobes MRI showed complex area hemorrhage involving the anterior medial right temporal lobe, vasogenic edema and subdural hemorrhages in the right temporal, occipital and parietal regions in the left and right frontal areas very small subdural hemorrhage in the left occipital region. Neurosurgery was consulted and surgery was not indicated. Patient did receive a banana bag with ultimate improvement in his mentation. Patient was alert and oriented and was ambulating and was stable for DC. Alcohol cessation was advised. On the day of discharge patient vitals, labs and physical exam are stable. Home Meds Active Scripts Thiamine* (Thiamine*) 250 Mg Tablet, 250 MG PO DAILY for 30 Days, #30 TAB Prov:MARCIO CAMERON 10/01/18 Follow-up Plan FOLLOW UP WITH YOUR PCP IN 1-2 WEEKS Primary Care Provider Care Physician No Primary Time spent on discharge: > 30 minutes MARCIO CAMERON October 01, 2018 13:49
[2018-10-01 14:43] VITALS: BP 106/71; PULSE 86; RESP 18
[2018-10-01 20:15] VITALS: BP 119/69; PULSE 88; RESP 20
[2018-10-02 02:54] VITALS: BP 128/77; PULSE 68; RESP 17
[2018-10-02 07:26] VITALS: BP 113/73; PULSE 16; RESP 16
[2018-10-02] MEDS: FAMOTIDINE 20 MG INJ IV SCH ×2 (09:01→20:42)
[2018-10-02 14:00] VITALS: BP 87/64; PULSE 62; RESP 18
--- NOTE | 2018-10-02 16:43 | PN ---
Date/Time of Note Date/Time of Note DATE: 10/02/18 TIME: 16:41 Assessment/Plan VTE Prophylaxis Risk score (from [facility])>0 risk: 1 Pharmacological prophylaxis: NA/contraindicated Pharm contraindication: low risk/ambulating Lines/Catheters IV Catheter Type (from [facility]): Saline Lock Assessment/Plan Hospital Course 1. Acute encephalopathy secondary to intracranial hemorrhage Patient with labile mentation Patient with unclear medical history who was brought in by EMS for confusion and headache CT head showed skull fracture and Vasogenic edema in the right frontal right temporal lobes. MRI shows complex area of hemorrhage involving the anterior medial right temporal lobe, largest hemorrhagic collection measuring 5.0 x 2.4 x 2.5 cm, vasogenic edema noted, subdural hemorrhages in the right temporal, occipital and parietal regions in the left and right frontal areas and very small subdural hemorrhage in the left occipital region Neurosurgery consultation appreciated, no indications for surgery Patient with history of alcohol abuse and likely fall, continue banana bag Patient continues to be alert and only oriented to his name Ammonia level is normal. 2. Hypokalemia Repleted 3. Bicytopenia with leukopenia and anemia likely secondary to alcohol abuse Monitor 4. Alcohol abuse Status post banana bag Prophylaxis: Ambulation DC planning: Patient will likely need placement if mentation does not improve Result Diagram: 09/29/18 0606 Subjective 24 Hr Interval Summary Constitutional: disoriented Exam/Review of Systems Exam Vitals Vital Signs Date Temp Pulse Resp B/P (MAP) Pulse Ox O2 O2 Flow FiO2 Time Delivery Rate 10/02/18 98.0 62 18 87/64 (72) 98 Room Air 14:00 Intake and Output 10/01/18 10/01/18 10/02/18 1414:59 22:59 06:59 IntakeIntake Total 880 ml 1311.2 ml OutputOutput Total 600 ml BalanceBalance 280 ml 1311.2 ml Constitutional: alert Psych: confusion Respiratory: clear to auscultation Cardiovascular: regular rate and rhythm Gastrointestinal: soft; No distended Musculoskeletal: nl extremities to inspection Medications Medication Current Medications Ondansetron HCl (Zofran Inj) 4 mg Q6H PRN IV NAUSEA AND/OR VOMITING; Start 09/25/18 at 23:30 Albuterol/ Ipratropium (Duoneb) 3 ml Q2H RESP THERAPY PRN NEB SHORTNESS OF BREATH; Start 09/25/18 at 23:30 Acetaminophen (Tylenol Supp) 650 mg Q4H PRN [place] PAIN LEVEL 1-3 OR FEVER Last administered on 09/26/18at 21:01; Admin Dose 650 MG; Start 09/25/18 at 23:30 Lorazepam (Ativan) 1 mg Q2H PRN IV ANXIETY; Start 09/25/18 at 23:30 Famotidine (Pepcid Iv) 20 mg Q12 IV Last administered on 10/02/18at 09:01; Admin Dose 20 MG; Start 09/26/18 at 09:00 Lorazepam (Ativan) 2 mg Q1H PRN IV etoh w/d; Start 09/26/18 at 01:30 Acetaminophen (Tylenol Tab) 650 mg Q6H PRN PO MILD PAIN(1-3)OR ELEVATED TEMP Last administered on 09/29/18at 18:16; Admin Dose 650 MG; Start 09/27/18 at 18:30 MARCIO CAMERON October 02, 2018 16:43
[2018-10-02 19:59] VITALS: BP 111/69; PULSE 78; RESP 18
[2018-10-02] MEDS: ACETAMINOPHEN 325 MG TAB PO PRN (22:46)
[2018-10-03 02:20] VITALS: BP 100/60; PULSE 84; RESP 18
[2018-10-03 07:45] VITALS: BP 85/53; PULSE 96; RESP 16
[2018-10-03] MEDS: FAMOTIDINE 20 MG INJ IV SCH ×2 (08:40→20:58)
--- NOTE | 2018-10-03 10:35 | PN ---
Date/Time of Note Date/Time of Note DATE: 10/03/18 TIME: 10:33 Assessment/Plan VTE Prophylaxis Risk score (from Nsg)>0 risk: 1 Pharmacological prophylaxis: NA/contraindicated Pharm contraindication: low risk/ambulating Lines/Catheters IV Catheter Type (from Nrsg): Peripheral IV Assessment/Plan Hospital Course 1. Acute encephalopathy secondary to alcohol abuse and/or intracranial hemorrhage Patient with labile mentation Patient with unclear medical history who was brought in by EMS for confusion and headache CT head showed skull fracture and Vasogenic edema in the right frontal right temporal lobes. MRI shows complex area of hemorrhage involving the anterior medial right temporal lobe, largest hemorrhagic collection measuring 5.0 x 2.4 x 2.5 cm, vasogenic edema noted, subdural hemorrhages in the right temporal, occipital and parietal regions in the left and right frontal areas and very small subdural hemorrhage in the left occipital region Neurosurgery consultation appreciated, no indications for surgery Patient with history of alcohol abuse and likely fall, status post banana bag Patient continues to be alert and only oriented to his name Ammonia level is normal Continue thiamine 2. Hypokalemia Repleted 3. Bicytopenia with leukopenia and anemia likely secondary to alcohol abuse Monitor 4. Alcohol abuse Status post banana bag, continue thiamine Prophylaxis: Ambulation DC planning: Patient will likely need placement if mentation does not improve Result Diagram: 09/29/18 0606 Subjective 24 Hr Interval Summary Constitutional: disoriented Exam/Review of Systems Exam Vitals Vital Signs Date Temp Pulse Resp B/P (MAP) Pulse Ox O2 O2 Flow FiO2 Time Delivery Rate 10/03/18 97.5 96 16 85/53 (64) 100 Room Air 07:45 Intake and Output 10/02/18 10/02/18 10/03/18 1515:00 23:00 07:00 IntakeIntake Total 760 ml OutputOutput Total 400 ml BalanceBalance 760 ml -400 ml Psych: confusion Respiratory: clear to auscultation Cardiovascular: regular rate and rhythm Gastrointestinal: soft; No distended Musculoskeletal: nl extremities to inspection Medications Medication Current Medications Ondansetron HCl (Zofran Inj) 4 mg Q6H PRN IV NAUSEA AND/OR VOMITING; Start 09/25/18 at 23:30 Albuterol/ Ipratropium (Duoneb) 3 ml Q2H RESP THERAPY PRN NEB SHORTNESS OF BREATH; Start 09/25/18 at 23:30 Acetaminophen (Tylenol Supp) 650 mg Q4H PRN [place] PAIN LEVEL 1-3 OR FEVER Last administered on 09/26/18at 21:01; Admin Dose 650 MG; Start 09/25/18 at 23:30 Lorazepam (Ativan) 1 mg Q2H PRN IV ANXIETY; Start 09/25/18 at 23:30 Famotidine (Pepcid Iv) 20 mg Q12 IV Last administered on 10/03/18at 08:40; Admin Dose 20 MG; Start 09/26/18 at 09:00 Lorazepam (Ativan) 2 mg Q1H PRN IV etoh w/d; Start 09/26/18 at 01:30 Acetaminophen (Tylenol Tab) 650 mg Q6H PRN PO MILD PAIN(1-3)OR ELEVATED TEMP Last administered on 10/02/18at 22:46; Admin Dose 650 MG; Start 09/27/18 at 18:30 MARCIO CAMERON October 03, 2018 10:35
[2018-10-03] MEDS: THIAMINE 100 MG TAB PO SCH (11:38)
[2018-10-03 14:39] VITALS: BP 110/66; PULSE 74; RESP 15
[2018-10-03 20:27] VITALS: BP 105/61; PULSE 82; RESP 18
[2018-10-04 02:07] VITALS: BP 104/65; PULSE 90; RESP 18
[2018-10-04 08:00] VITALS: BP 98/63; PULSE 95; RESP 18
[2018-10-04] MEDS: THIAMINE 100 MG TAB PO SCH (08:05)
[2018-10-04] MEDS: FAMOTIDINE 20 MG INJ IV SCH ×2 (08:05→20:15)
[2018-10-04] MEDS: ACETAMINOPHEN 325 MG TAB PO PRN ×2 (08:09→16:54)
[2018-10-04 14:00] VITALS: BP 102/73; PULSE 92; RESP 16
--- NOTE | 2018-10-04 17:11 | PN ---
Date/Time of Note Date/Time of Note DATE: 10/04/18 TIME: 17:09 Assessment/Plan VTE Prophylaxis Risk score (from Nsg)>0 risk: 1 SCD applied (from Nsg): Yes Pharmacological prophylaxis: heparin Lines/Catheters IV Catheter Type (from Nrsg): Peripheral IV Assessment/Plan Hospital Course AOx3 Pleasant, appropriate Ambulating around without difficulty RRR CTAB A/P: 53 yo male with unclear medical history who was brought in by EMS with documentation stating he was wandering back and forth on the street and complaining of headache. Found to have skull fracture and SDH SDH: - Stalbe, no need for surgery dc to SNF when accpeted Subjective 24 Hr Interval Summary Free Text/Dictation Doing well No complaints Ambulating without difficulty Exam/Review of Systems Exam Vitals Vital Signs Date Temp Pulse Resp B/P (MAP) Pulse Ox O2 O2 Flow FiO2 Time Delivery Rate 10/04/18 97.9 95 18 98/63 (75) 100 08:00 10/03/18 Room Air 14:39 Intake and Output 10/03/18 10/03/18 10/04/18 1515:00 23:00 07:00 IntakeIntake Total 700 ml OutputOutput Total 600 ml BalanceBalance 100 ml Medications Medication Current Medications Ondansetron HCl (Zofran Inj) 4 mg Q6H PRN IV NAUSEA AND/OR VOMITING; Start 09/25/18 at 23:30 Albuterol/ Ipratropium (Duoneb) 3 ml Q2H RESP THERAPY PRN NEB SHORTNESS OF BREATH; Start 09/25/18 at 23:30 Acetaminophen (Tylenol Supp) 650 mg Q4H PRN [place] PAIN LEVEL 1-3 OR FEVER Last administered on 09/26/18at 21:01; Admin Dose 650 MG; Start 09/25/18 at 23:30 Lorazepam (Ativan) 1 mg Q2H PRN IV ANXIETY; Start 09/25/18 at 23:30 Famotidine (Pepcid Iv) 20 mg Q12 IV Last administered on 10/04/18at 08:05; Admin Dose 20 MG; Start 09/26/18 at 09:00 Lorazepam (Ativan) 2 mg Q1H PRN IV etoh w/d Last administered on 10/04/18at 10:19; Admin Dose 2 MG; Start 09/26/18 at 01:30 Acetaminophen (Tylenol Tab) 650 mg Q6H PRN PO MILD PAIN(1-3)OR ELEVATED TEMP Last administered on 10/04/18at 16:54; Admin Dose 650 MG; Start 09/27/18 at 18:30 Thiamine HCl (Vitamin B1) 100 mg DAILY PO Last administered on 10/04/18 08:05; Admin Dose 100 MG; Start 10/03/18 at 11:00 RIC GIRON MD October 04, 2018 17:11
[2018-10-04 19:45] VITALS: BP 140/82; PULSE 90; RESP 16
[2018-10-05 02:00] VITALS: BP 126/78; PULSE 82; RESP 16
[2018-10-05] MEDS: ACETAMINOPHEN 325 MG TAB PO PRN ×2 (04:24→18:54)
[2018-10-05 07:49] VITALS: BP 126/78; PULSE 118; RESP 16
[2018-10-05] MEDS: FAMOTIDINE 20 MG INJ IV SCH (08:19)
[2018-10-05] MEDS: THIAMINE 100 MG TAB PO SCH (08:19)
[2018-10-05 14:17] VITALS: BP 83/53; PULSE 93; RESP 16
[2018-10-05 15:27] VITALS: BP 104/66; PULSE 78; RESP 18
--- NOTE | 2018-10-05 17:17 | PN ---
Date/Time of Note Date/Time of Note DATE: 10/05/18 TIME: 17:16 Assessment/Plan VTE Prophylaxis Risk score (from Nsg)>0 risk: 1 SCD applied (from Nsg): Yes Pharmacological prophylaxis: heparin Lines/Catheters IV Catheter Type (from Nrsg): Saline Lock Assessment/Plan Hospital Course AOx3 Pleasant, appropriate Ambulating around without difficulty RRR CTAB A/P: 53 yo male with unclear medical history who was brought in by EMS with documentation stating he was wandering back and forth on the street and complaining of headache. Found to have skull fracture and SDH SDH: - Stalbe, no need for surgery dc to SNF when accpeted Subjective 24 Hr Interval Summary Free Text/Dictation Occasionally delirious, wandering hallway Exam/Review of Systems Exam Vitals Vital Signs Date Temp Pulse Resp B/P (MAP) Pulse Ox O2 O2 Flow FiO2 Time Delivery Rate 10/05/18 78 18 104/66 15:27 (79) 10/05/18 98.5 99 Room Air 14:17 Intake and Output 10/04/18 10/04/18 10/05/18 1414:59 22:59 06:59 IntakeIntake Total 520 ml 240 ml BalanceBalance 520 ml 240 ml Medications Medication Current Medications Ondansetron HCl (Zofran Inj) 4 mg Q6H PRN IV NAUSEA AND/OR VOMITING; Start 09/25/18 at 23:30 Albuterol/ Ipratropium (Duoneb) 3 ml Q2H RESP THERAPY PRN NEB SHORTNESS OF BREATH; Start 09/25/18 at 23:30 Acetaminophen (Tylenol Supp) 650 mg Q4H PRN [place] PAIN LEVEL 1-3 OR FEVER Last administered on 09/26/18at 21:01; Admin Dose 650 MG; Start 09/25/18 at 23:30 Lorazepam (Ativan) 1 mg Q2H PRN IV ANXIETY Last administered on 10/04/18at 17:52; Admin Dose 1 MG; Start 09/25/18 at 23:30 Famotidine (Pepcid Iv) 20 mg Q12 IV Last administered on 10/05/18at 08:19; Admin Dose 20 MG; Start 09/26/18 at 09:00 Lorazepam (Ativan) 2 mg Q1H PRN IV etoh w/d Last administered on 10/04/18at 10:19; Admin Dose 2 MG; Start 09/26/18 at 01:30 Acetaminophen (Tylenol Tab) 650 mg Q6H PRN PO MILD PAIN(1-3)OR ELEVATED TEMP Last administered on 10/05/18at 04:24; Admin Dose 650 MG; Start 09/27/18 at 18:30 Thiamine HCl (Vitamin B1) 100 mg DAILY PO Last administered on 10/05/18at 08:19; Admin Dose 100 MG; Start 10/03/18 at 11:00 RIC GIRON MD October 05, 2018 17:17
[2018-10-05 20:00] VITALS: BP 137/79; PULSE 70; RESP 19
[2018-10-06 02:54] VITALS: BP 126/83; PULSE 94; RESP 20
[2018-10-06 07:52] VITALS: BP 92/65; PULSE 86; RESP 18
[2018-10-06] MEDS: THIAMINE 100 MG TAB PO SCH (08:01)
[2018-10-06] MEDS: ACETAMINOPHEN 325 MG TAB PO PRN ×2 (08:02→19:36)
[2018-10-06] MEDS ORDERED: HYDROCODONE/APAP (5/325) TAB PO ONE (09:00)
[2018-10-06 14:00] VITALS: BP 91/55; PULSE 58; RESP 18
--- NOTE | 2018-10-06 17:03 | PN ---
Date/Time of Note Date/Time of Note DATE: 10/06/18 TIME: 17:03 Assessment/Plan VTE Prophylaxis Risk score (from Nsg)>0 risk: 1 SCD applied (from Nsg): Yes Pharmacological prophylaxis: heparin Lines/Catheters IV Catheter Type (from Nrsg): Peripheral IV Assessment/Plan Hospital Course AOx3 Pleasant, appropriate Ambulating around without difficulty RRR CTAB A/P: 53 yo male with unclear medical history who was brought in by EMS with documentation stating he was wandering back and forth on the street and complaining of headache. Found to have skull fracture and SDH SDH: - Stalbe, no need for surgery dc to SNF when accpeted Exam/Review of Systems Exam Vitals Vital Signs Date Temp Pulse Resp B/P (MAP) Pulse Ox O2 O2 Flow FiO2 Time Delivery Rate 10/06/18 97.9 58 18 91/55 (67) 98 Room Air 14:00 Medications Medication Current Medications Ondansetron HCl (Zofran Inj) 4 mg Q6H PRN IV NAUSEA AND/OR VOMITING; Start 09/25/18 at 23:30 Albuterol/ Ipratropium (Duoneb) 3 ml Q2H RESP THERAPY PRN NEB SHORTNESS OF BREATH; Start 09/25/18 at 23:30 Acetaminophen (Tylenol Supp) 650 mg Q4H PRN [place] PAIN LEVEL 1-3 OR FEVER Last administered on 09/26/18at 21:01; Admin Dose 650 MG; Start 09/25/18 at 23:30 Lorazepam (Ativan) 1 mg Q2H PRN IV ANXIETY Last administered on 10/04/18at 17:52; Admin Dose 1 MG; Start 09/25/18 at 23:30 Lorazepam (Ativan) 2 mg Q1H PRN IV etoh w/d Last administered on 10/04/18at 10:19; Admin Dose 2 MG; Start 09/26/18 at 01:30 Acetaminophen (Tylenol Tab) 650 mg Q6H PRN PO MILD PAIN(1-3)OR ELEVATED TEMP Last administered on 10/06/18at 08:02; Admin Dose 650 MG; Start 09/27/18 at 18:30 Thiamine HCl (Vitamin B1) 100 mg DAILY PO Last administered on 10/06/18at 08:01; Admin Dose 100 MG; Start 10/03/18 at 11:00 RIC GIRON MD October 06, 2018 17:03
[2018-10-06 20:30] VITALS: BP 91/61; PULSE 90; RESP 18
[2018-10-06] MEDS ORDERED: MENTHOL/METH SALICYLATE 30 GM OINT TOP PRN (21:00)
[2018-10-07 02:00] VITALS: BP 126/85; PULSE 75; RESP 18
[2018-10-07] MEDS: ACETAMINOPHEN 325 MG TAB PO PRN (04:39)
[2018-10-07] MEDS: THIAMINE 100 MG TAB PO SCH ×3 (07:51→20:44)
[2018-10-07 08:00] VITALS: BP 99/62; PULSE 77; RESP 18
[2018-10-07 14:13] VITALS: BP 108/70; PULSE 80; RESP 18
--- NOTE | 2018-10-07 14:29 | PN ---
Date/Time of Note Date/Time of Note DATE: 10/07/18 TIME: 14:27 Assessment/Plan VTE Prophylaxis Risk score (from Nsg)>0 risk: 1 SCD applied (from Nsg): Yes Pharmacological prophylaxis: heparin Lines/Catheters IV Catheter Type (from Nrsg): Peripheral IV Urinary Cath still in place: No Assessment/Plan Hospital Course AOx3 Pleasant, appropriate Ambulating around without difficulty RRR CTAB A/P: 53 yo male with unclear medical history, etoh use d/o who was brought in by EMS with documentation stating he was wandering back and forth on the street and c omplaining of headache. Found to have skull fracture and SDH SDH: - Stalbe, no need for surgery Etoh use d/o: - Thiamine, folate, MVI Acute on chornic encephelopathy: - Acute component resolving, likely chronic encephelopathy 2/2 alcohol use dc to SNF when accpeted Subjective 24 Hr Interval Summary Free Text/Dictation Mentation improving slightly Says lives in a workshop in [place], Can't say name or address Says he has a cousin Radha that lives at [address] [facility] in [place], [address] Exam/Review of Systems Exam Vitals Vital Signs Date Temp Pulse Resp B/P (MAP) Pulse Ox O2 O2 Flow FiO2 Time Delivery Rate 10/07/18 98.7 80 18 108/70 99 Room Air 14:13 (83) Intake and Output 10/06/18 10/06/18 10/07/18 1515:00 23:00 07:00 IntakeIntake Total 920 ml OutputOutput Total 550 ml 200 ml BalanceBalance 370 ml -200 ml Medications Medication Current Medications Ondansetron HCl (Zofran Inj) 4 mg Q6H PRN IV NAUSEA AND/OR VOMITING; Start 09/25/18 at 23:30 Albuterol/ Ipratropium (Duoneb) 3 ml Q2H RESP THERAPY PRN NEB SHORTNESS OF BREATH; Start 09/25/18 at 23:30 Acetaminophen (Tylenol Supp) 650 mg Q4H PRN [place] PAIN LEVEL 1-3 OR FEVER Last administered on 09/26/18at 21:01; Admin Dose 650 MG; Start 09/25/18 at 23:30 Lorazepam (Ativan) 1 mg Q2H PRN IV ANXIETY Last administered on 10/04/18at 17:52; Admin Dose 1 MG; Start 09/25/18 at 23:30 Lorazepam (Ativan) 2 mg Q1H PRN IV etoh w/d Last administered on 10/04/18at 10:19; Admin Dose 2 MG; Start 09/26/18 at 01:30 Acetaminophen (Tylenol Tab) 650 mg Q6H PRN PO MILD PAIN(1-3)OR ELEVATED TEMP Last administered on 10/07/18at 04:39; Admin Dose 650 MG; Start 09/27/18 at 18:30 Thiamine HCl (Vitamin B1) 100 mg DAILY PO Last administered on 10/07/18at 07:51; Admin Dose 100 MG; Start 10/03/18 at 11:00 Menthol/Methyl Salicylate (Mynor Jacobsen) 1 applic QID PRN TOP PAIN; Start 10/06/18 at 21:00 RIC GIRON MD October 07, 2018 14:29
[2018-10-07] MEDS: MULTIVITAMINS THERAPEUTIC TAB PO SCH (14:47)
[2018-10-07 20:04] VITALS: BP 104/65; PULSE 88; RESP 16
[2018-10-08] MEDS: ACETAMINOPHEN 325 MG TAB PO PRN ×2 (00:08→08:00)
[2018-10-08 02:00] VITALS: BP 102/66; PULSE 93; RESP 16
[2018-10-08 08:00] VITALS: BP 95/67; PULSE 93; RESP 18
[2018-10-08] MEDS: MULTIVITAMINS THERAPEUTIC TAB PO SCH (08:00)
[2018-10-08] MEDS: THIAMINE 100 MG TAB PO SCH ×2 (08:00→08:04)
--- NOTE | 2018-10-08 16:19 | DS ---
Date/Time of Note Date/Time of Note DATE: 10/08/18 TIME: 16:18 Discharge Summary Admission/Discharge Info Admit Date/Time September 25, 2018 at 22:24 Discharge Date/Time October 08, 2018 at 13:35 Discharge Diagnosis 1. Acute metabolic/toxic encephalopathy secondary to alcohol abuse and/or intracranial hemorrhage-improved Patient now alert alert and oriented Patient was brought in by EMS for confusion and headache and was confused for several days CT head showed skull fracture and Vasogenic edema in the right frontal right temporal lobes. MRI shows complex area of hemorrhage involving the anterior medial right temporal lobe, largest hemorrhagic collection measuring 5.0 x 2.4 x 2.5 cm, vasogenic edema noted, subdural hemorrhages in the right temporal, occipital and parietal regions in the left and right frontal areas and very small subdural hemorrhage in the left occipital region Neurosurgery consultation appreciated, no indications for surgery Patient with history of alcohol abuse and likely fall, status post banana bag Ammonia level is normal. 2. Hypokalemia Repleted 3. Bicytopenia with leukopenia and anemia likely secondary to alcohol abuse Monitor 4. Alcohol abuse Status post banana bag Noticed withdrawals DC with thiamine p.o. Alcohol cessation advised Patient Condition: Stable Hospital Course 53 yo male with unclear medical history, etoh use d/o who was brought in by EMS with documentation stating he was wandering back and forth on the street and complaining of headache. Found to have skull fracture and SDH He was seen by neurosurgery who recommended against surgical intervention He was given supportive care. Thiamine and folate supplementation were given His mentation improved and he was able to be discharged to self nursing home Meds Active Scripts Thiamine* (Thiamine*) 250 Mg Tablet, 250 MG PO DAILY for 30 Days, #30 TAB Prov:MARCIO CAMERON 10/01/18 Follow-up Plan FOLLOW UP WITH YOUR PCP IN 1-2 WEEKS Primary Care Provider Care Physician No Primary RIC GIRON MD October 08, 2018 16:19
== END 2018-10-08 13:35 | disposition home or self-care (01) | DRG 85 ==
LOC: E/R 18:10 → ICU 22:24 → CANBEDREQ 22:52 → EDBEDREQ 23:34 → TEL 09-26 16:01 → 5EC 09-29 14:17
PROVIDERS: ADMIT Internal Medicine; ATTEND Internal Medicine
DX: S06.1X0A Traumatic cerebral edema without loss of consciousness, initial encounter (principal); G92 Toxic encephalopathy; F10.239 Alcohol dependence with withdrawal, unspecified; S02.91XA Unspecified fracture of skull, initial encounter for closed fracture; G31.9 Degenerative disease of nervous system, unspecified; D64.9 Anemia, unspecified; F10.229 Alcohol dependence with intoxication, unspecified; D72.818 Other decreased white blood cell count; E87.6 Hypokalemia; S06.5X0A Traumatic subdural hemorrhage without loss of consciousness, initial encounter
CPT/HCPCS: 36415; 70450; 70551; 70553; 71045; 80048; 80053; 80307; 82140; 82270; 82728; 82962; 83036; 83540; 83735; 84484; 85025; 85610; 85730; 93005; 97161; J2060; J3411; J3480; J7030